=== PATIENT | female | born 1975 | race Two or more races ===

== ENCOUNTER 2022-08-28 23:56 | Emergency (ER) | payer MEDICAID ==
[2022-08-29] MEDS ORDERED: Ketorolac 30 MG/ML SDV IM ONE (02:35)
[2022-08-29] MEDS ORDERED: Diazepam 5 MG Tab PO ONE (02:35)
== END 2022-08-29 03:03 | disposition home or self-care (01) ==
LOC: MW.ED 23:56
DX: M54.16 Radiculopathy, lumbar region (principal)
CPT/HCPCS: 96372; 99283; A9270; J1885